=== PATIENT | male | born 1980 | race Caucasian/White ===

== ENCOUNTER 2017-01-10 20:37 | Emergency (ER) | payer SELFPAY ==
[~2017-01-10] VITALS: Ht 167.6 cm; Wt 100.0 kg
[~2017-01-10 20:37] MED LIST: ALBUTEROL INHALER
[2017-01-10] MEDS ORDERED: HYDROmorphone 2 MG/ML SYRINGE IVP ONE ×2 (21:45→22:30)
[2017-01-10] MEDS ORDERED: ONDANSETRON HCL 4 MG/2 ML VIAL IVP ONE (22:00)
[2017-01-11 02:50] VITALS: BP 133/79
== END 2017-01-11 02:50 | disposition home or self-care (01) ==
LOC: EMS 20:40
DX: S43.004A Unspecified dislocation of right shoulder joint, initial encounter (principal); S42.291A Other displaced fracture of upper end of right humerus, initial encounter for closed fracture; S00.83XA Contusion of other part of head, initial encounter; J45.909 Unspecified asthma, uncomplicated; Y04.0XXA Assault by unarmed brawl or fight, initial encounter; Y93.89 Activity, other specified; Y92.89 Other specified places as the place of occurrence of the external cause; Y99.8 Other external cause status
CPT/HCPCS: 23650; 70450; 70486; 73020; 73030; 73200; 96374; 96375; 96376; 99284; J1170; J2405

== ENCOUNTER 2017-03-05 11:19 | Emergency (ER) | payer MEDICAID ==
[~2017-03-05] VITALS: Ht 170.2 cm; Wt 90.9 kg
[2017-03-05] MEDS ORDERED: ALBU8HFA IH (11:49)
[2017-03-05 14:43] VITALS: BP 138/79
== END 2017-03-05 14:52 | disposition home or self-care (01) ==
LOC: EMS 11:22
DX: M25.311 Other instability, right shoulder (principal); J45.909 Unspecified asthma, uncomplicated; Z02.9 Encounter for administrative examinations, unspecified
CPT/HCPCS: 99281

== ENCOUNTER 2018-01-29 02:23 | Emergency (ER) | payer MEDICAID ==
[~2018-01-29] VITALS: Ht 165.1 cm; Wt 90.9 kg
[~2018-01-29 02:23] MED LIST changes: +ALBU8HFA IH; -ALBUTEROL INHALER
[2018-01-29] MEDS ORDERED: ALBUTEROL SULFATE 5 MG/ML 20 ML NEB SOLN [BULK] NEB ONE ×2 (02:30→04:15)
[2018-01-29] MEDS ORDERED: IPRATROPIUM BROMIDE 0.5 MG/2.5 ML NEB SOLUTION NEB ONE ×2 (02:30→04:15)
[2018-01-29] MEDS ORDERED: 0.9% SODIUM CHLORIDE 5 ML NEB SOLUTION NEB ONE ×2 (02:35→04:37)
[2018-01-29] MEDS ORDERED: DEXAMETHASONE 4 MG TABLET PO ONE (03:15)
[2018-01-29 05:38] VITALS: BP 131/85
== END 2018-01-29 06:04 | disposition home or self-care (01) ==
LOC: EMS 02:23
DX: J45.901 Unspecified asthma with (acute) exacerbation (principal)
CPT/HCPCS: 94644; 94645; 99285; J8540